=== PATIENT | female | born 1965 | race Hispanic/Latino ===

== ENCOUNTER 2017-05-07 06:56 | Inpatient (IN) | payer BC ==
[2017-04-18 10:54] VITALS: BMI 39.8
[2017-05-07] MEDS ORDERED: Propofol 10 mg/ml Inj (20 ML) ONE (08:27)
[2017-05-07] MEDS ORDERED: ePHEDrine 50 mg/ml Inj ONE (08:27)
[2017-05-07] MEDS ORDERED: Midazolam 2 MG/2 ML VIAL ONE (08:28)
[2017-05-07] MEDS ORDERED: Rocuronium 10 mg/ml (5 ml) ONE (08:28)
[2017-05-07] MEDS ORDERED: Succinylcholine 200 mg/10 ml Inj IV ONE (08:28)
[2017-05-07] MEDS ORDERED: Lidocaine 4% (Laryng-O-Jet) Kit MM ONE (08:28)
[2017-05-07] MEDS ORDERED: Bupivacaine 0.5% Inj(30mL) ONE (08:34)
[2017-05-07] MEDS ORDERED: Lactated Ringer's 500 ML IV ONE (09:00)
[2017-05-07] MEDS ORDERED: Sodium Chloride 0.9% 1,000 ML IV ONE ×2 (09:10→10:05)
[2017-05-07] MEDS ORDERED: Dexamethasone 4 mg/1 ml ONE (09:22)
[2017-05-07] MEDS ORDERED: APROTININ/FIBRINOGEN(TISSEEL) ONE ×2 (10:55→11:10)
[2017-05-07] MEDS ORDERED: Neostigmine 1:1000 (1 mg/ml) Inj ONE (11:11)
[2017-05-07] MEDS ORDERED: Desflurane Inhalation Anesthetic Liq (240 ml) ONE (11:18)
--- NOTE | 2017-05-07 11:45 | PCM.SURG1 ---
Surgeon's Initial Post Op Note - Surgeon's Notes Surgeon: Emily Jenkins MD Executive Producer Promos: alon EDOUARD, Maurisio EDOUARD Type of Anesthesia: General Endo, Local Pre-Operative Diagnosis: Chronic pelvic pain. Abnormal uterine bleeding. Fibroid uterus. Prolapse uterus Operative Findings: bulky uterus, extensive adhesions, adherent distroted pelvic anatomy both ovaries adherent to pelvic side wall, enlarged fibroid uterus, prolpase epical uterus, bowel adhesions to posterior culdesac, bladder and ureters normal appearing bilateraly. Post-Operative Diagnosis: Chronic pelvic pain. Abnormal uterine bleeding. Fibroid uterus. Prolapse uterus. Significant pelvic adhesive disease Operation Performed: Total robotic hysterectomy BSO >250g. Uterosacroligament suspenssion colpopexy. Enterolysis JERRY. Diagnostic cystoscopy Specimen/Specimens Removed: uterus cervix tubes and ovaries Estimated Blood Loss: EBL {In ML}: 20 Blood Products Given: N/A Drains Used: No Drains Date of Surgery/Procedure: 05/07/17 Time of Surgery/Procedure: 11:44
[2017-05-07] MEDS ORDERED: Oxycodone/Acetaminophen 5/325 mg Tab PO PRN (11:50)
--- NOTE | 2017-05-07 11:50 | PCM.OP ---
Operative Report - Operative Report Date of Surgery/Procedure: 05/07/17 Time of Surgery/Procedure: 11:48 Surgeon: Emily Jenkins MD Recruiting Consultant: Nathen Ann Anesthesia/Sedation: Gen with ET tube Pre-Operative Diagnosis: Chronic pelvic pain. Prolapse uterus. Fibroid uterus. ABnormal uterine bleeding. Urinary incontinence Post-Operative Diagnosis: Chronic pelvic pain. Prolapse uterus. Fibroid uterus. Abnormal uterine bleeding. Urinary incontinence. PElvic adhesive disease Indication for Surgery: Worsening chronic pain due to prolapsed uterus, worsening stress urinary incontinence Operative Findings: Bulky uterus, extensive bowel and peritoneal adhesions, bowel adhesions to posterior culdesac, adherent distroted pelvic anatomy both ovaries adherent to pelvic side wall, enlarged fibroid uterus, epical uterine prolapse, bladder and ureters normal appearing bilateraly. Procedure/Operation Description: Total robotic hysterectomy bilateral salpingo- oophorectomy>250g. Uterosacral ligament suspension colpopexy. Lysis of adhesions. Diagnostic cystoscopy. . Detailed Operative Report. This is a 52 years old female with worsening chronic pelvic pain, abnormal uterine bleeding due to fibroid uterus, prolapsed uterus associated with urinary incontinence and pelvic pressure. The patient completed an extensive preoperative workup, which included an ultrasound, as well as a pap smear and an endometrial biopsy, chemistry and hematology studies. A decision was finally made to proceed with a total robotic assisted hysterectomy, bilateral salpingo-oophorectomy, and vaginal vault suspension. All options alternative managements were reviewed including non-surgical and uterine preserving options , but a decision was made by the patient to proceed with surgical management, specifically a hysterectomy. The patient understands the definitive nature of the procedure and understands that she will not be able to have future pregnancies and possible surgical menopause due to an optional removal of her tubes and ovaries. A detailed description of this robotic procedure was given to the patient, all risks and benefits of the surgical modality was reviewed, printed material was also given to the patient regarding robotic surgery. The patient fully understood all the risks and benefits and elected to proceed with this proposed procedure. After proper consent was obtained from the patient was taken to the operating room, proper patient identification was completed. She was placed in dorsal lithotomy position; general anesthesia was induced without difficulty. Her legs were placed in adjustable Juan Carlos stirrups. Careful attention was placed not to over-flex or over-rotate the lower extremities at the hip or the knee joints. She was prepped and draped appropriately for robotic assisted hysterectomy. Mays catheter was inserted under sterile conditions. A V-care uterine manipulator was inserted through the cervix and secured. Attention was turned to the patient's abdomen. Local anesthetic solutions of 0.25% Marcaine with epinephrine were utilized to infiltrate the skin prior to all abdominal skin incisions. A total of 15 mL of 0.25% Marcaine was utilized throughout the procedure. While tenting the abdominal wall, a Veres needle was inserted through the umbilicus and a pneumo- peritoneum was obtained. Approximately at around the umbilical fold, , a small incision was made with a scalpel and a laparoscopic trocar and sleeve were introduced. A robotic camera was inserted through this trocar and an initial survey of the patient's pelvic and abdomen revealed bulky and boggy enlarged uterus associated with fibroids and possibly adenomyosis. Tubes and ovaries appeared adherent to the pelvic viscera and bowel. The patient was placed in Trendelenburg position ready for a da Pedro robotic system to be docked. 3 robotic ports were utilized for this procedure. The first robotic port was placed on the patient's right side approximately 5 cm above the right superior iliac crest where a small skin incision approximately 8 mm was made. The second robotic port was in the patient's left side approximately 5 cm superior to the left superior iliac crest. A small incision approximately 1 cm was made in the left upper quadrant and an enrichment assistant laparoscopic port was inserted. All robotic ports were approximately 8 mm in size, the enrichment assistant and the camera ports were 1 cm in size. For the enrichment assistant and camera ports we utilized the Versa-step trocar system. All trocars were inserted under direct visualization. The placement of the trocars was accomplished under careful and meticulous placement under direct visualization. Following the placement of all trocars, the da Pedro robotic system was docked in a parallel method without difficulty. The following instruments were utilized for this procedure : the PK sealing device, a monopolar misha and finally a ProGrasp. Meticulous and careful lysis of adhesions and enterolysis was completed utilizing the monopolar misha and PK. Prior to the start of the hysterectomy, both ureters and their courses were visualized peristalsing without difficulty. Prior to the start of the hysterectomy, Extensive lysis of adhesions and enterolysis was necessary to complete the procedure. The fallopian tubes were along the mesosalpinx and removed along with the uterus and cervix for pathology analysis. On the patient's right side, the round ligament was identified cauterized and transected. The IP ligament was cauterized and transected. The broad ligament was divided all the way down to the utero cervical junction bladder flap was then created by transecting the visceroperitoneum over the bladder reflection. In a similar fashion, the left round ligament, IP ligament and broad ligament were cauterized sealed and transected, taken down to the level of the cervical uterine junction. Uterine vessels on both sides were sealed and transected. The Uterosacral ligaments were sealed and transected. The monopolar misha and PK were utilized to complete the colpotomy incision around the care vaginal ring. Excellent hemostasis was noted. The uterus, cervix and fallopian tubes and ovaries were delivered transvaginal through the colpotomy incision and sent to pathology for permanent analysis. The colpotomy incision was closed with 2-0 v LOC in a continuous fashion with excellent hemostasis. The vaginal vault suspension was achieved by suspending the vaginal cuff to the base of the uterosacral ligaments bilaterally. Prior to the uterosacral ligament suspension, the ureters were once again identified to avoid possible compromise or kinking while suspending the vaginal vault. Meticulous dissection carried out to dissect out the ureters bilaterally to avoid kinking of the ureters with the suspension procedure. A 2-0 Juliette-Brown suture material was utilized to suspend the uterosacral ligaments from the base to the vaginal vault cuff incision including both anterior and posterior aspect of the colpotomy incision. Utilizing a 3-0 Monocryl suture, the peritoneum over the colpotomy incision and uterosacral ligaments was re-approximated in a continuous fashion. The abdomen was throughout irrigated and cleared of all clots and debris. Benjamin-Seal as well as Interceed was applied to the incision sites. Excellent hemostasis was again noted. All robotic and laparoscopic instruments removed under direct visualization. The robotic arms were undocked , and a da Baobab robotic system was wheeled away from the patient's bedside. Both enrichment assistant and camera ports were closed at the fascial layer utilizing 0 Vicryl suture material in interrupted fashion. Pneumo-peritoneum was reduced and all skin incisions were closed utilizing 4-0 Monocryl in a subcutaneous fashion. Dermabond was applied to all incisions. Due to the complexity of this hysterectomy, the extensive of the peritoneal and bowel adhesions and finally the distorted pelvic anatomy, a diagnostic cystoscopy was completed. The Mays catheter was removed; the bladder was distended with approximately 350 cc of normal saline. A 30 cystoscope was introduced and a survey of the bladder anatomy was completed. The base, and the dome of the bladder appeared normal, both ureteral orifices appeared normal and were effluxing urine freely. The urethra appeared normal. A Mays catheter was reinserted. Patient emerged from general anesthesia without difficulty, and was taken to recovery room in stable condition. Prior to incision the patient received antibiotics, prior to closure sponge lap and needle counts were correct x2. Difficult case due to severely distorted anatomy and dense adhesions, enrichment assistant surgeon SILKE Sena, was essential to docking the robot, irrigation and retraction during the procedure. This was an exceptionally difficult surgery and it required prolong duration and high degree of difficulty. Estimated Blood Loss: 20 Blood Replaced: None Sponge/Instrument Count: Count correct 2 Drains: None Complications: No complications noted Specimen: Uterus and cervix tubes and ovaries Discharge & Condition: Patient was discharged home in stable condition
[2017-05-07] MEDS ORDERED: Lactated Ringer's 1,000 ML IV SCH ×2 (12:00)
[2017-05-07] MEDS: HYDROmorphone 0.5 mg/0.5 ml ISec IVP PRN ×3 (12:10→12:40)
--- NOTE | 2017-05-07 12:58 | CARD ---
APPROVED REPORT EKG Measurement Heart [id number] <Conclusion> Normal sinus rhythm with sinus arrhythmia Normal ECG
[2017-05-08 06:38] LABS: MEAN CELL VOLUME 87.8 fl (81.0-99.0); MEAN CORPUSCULAR HEMOGLOBIN 29.5 pg (27.0-31.0); MEAN CORPUSCULAR HGB CONC 33.6 g/dL (33.0-37.0); RBC 3.75 Mil/uL (3.80-5.20); RED CELL DISTRIBUTION WIDTH 13.6 % (11.5-14.5); WHITE BLOOD COUNT 9.9 K/uL (4.8-10.8)
[2017-05-08 07:04] LABS: BLOOD UREA NITROGEN 9 mg/dl (7-17); CALCIUM 8.9 mg/dL (8.4-10.2); GFR AFRICAN-AMERICAN > 60; GFR NON-AFRICAN AMERICAN > 60
[2017-05-08 08:43] VITALS: BP 130/64; RESP 18
--- NOTE | 2017-05-08 09:09 | CP.PCM.PN ---
Subjective - Date & Time of Evaluation Date of Evaluation: 05/08/17 Time of Evaluation: 08:30 - Subjective Subjective: Patient seen and examined at bedside comfortable. Pain well controlled. Tolerating diet well. No acute events overnight. Objective - Vital Signs/Intake and Output Vital Signs (last 24 hours): Temp Pulse Resp BP Pulse Ox 98.3 F 60 18 130/64 98 05/08/17 08:30 05/08/17 08:30 05/08/17 08:30 05/08/17 08:30 05/08/17 08:30 Intake and Output: 05/08/17 05/08/17 06:59 18:59 Intake Total 1700 Output Total 1950 Balance -250 - Medications Medications: Current Medications Hydromorphone HCl (Dilaudid) 2 mg IVP Q3H PRN PRN Reason: Pain, severe (8-10) Lactated Ringer's (Lactated Ringer's) 1,000 mls @ 125 mls/hr IV .Q8H [facility] Last Admin: 05/07/17 23:28 Dose: 125 mls/hr Lactated Ringer's (Lactated Ringer's) 1,000 mls @ 100 mls/hr IV .Q10H [facility] Ketorolac Tromethamine (Toradol) 30 mg IVP Q6H [facility] Last Admin: 05/08/17 05:36 Dose: 30 mg Ondansetron HCl (Zofran Inj) 4 mg IVP Q6 PRN PRN Reason: Nausea/Vomiting Oxycodone/Acetaminophen (Percocet 5/325 Mg Tab) 2 tab PO Q4H PRN PRN Reason: Pain, moderate (4-7) Stop: 05/10/17 11:51 - Labs Labs: 05/08/17 05:50 05/08/17 05:50 - GI/Abdominal Exam GI & Abdominal Exam: Soft, Tenderness (mild 2nd to surgery), Normal Bowel Sounds. absent: Distended, Guarding, Rebound Assessment and Plan (1) Fibroid uterus Assessment & Plan: Patient is POD#1 from Davinci hysterectomy, uterosacral lig suspension, and lysis of adhesions doing well -pain control -void check -OOB -ok to d/c to home once voided -f/u in office within 2 weeks -case and plan d/w Dr. Jenkins in agreement Status: Acute
[2017-05-08 12:26] VITALS: PULSE 63; TEMP 98.4; O2SAT 97
== END 2017-05-08 13:00 | disposition home or self-care (01) | DRG 743 ==
LOC: H.OPSURG 06:56 → H.PEDS 11:50
PROVIDERS: ADMIT Obstetrics & Gynecology; ATTEND Obstetrics & Gynecology
PROC: 0UT20ZZ Resection of Bilateral Ovaries, Open Approach (ICD-10-PCS; 2017-05-07)
PROC: 0US90ZZ Reposition Uterus, Open Approach (ICD-10-PCS; 2017-05-07)
PROC: 0DNW0ZZ Release Peritoneum, Open Approach (ICD-10-PCS; 2017-05-07)
PROC: 8E0W0CZ Robotic Assisted Procedure of Trunk Region, Open Approach (ICD-10-PCS; 2017-05-07)
PROC: 0TJB8ZZ Inspection of Bladder, Via Natural or Artificial Opening Endoscopic (ICD-10-PCS; 2017-05-07)
PROC: 0UT90ZZ Resection of Uterus, Open Approach (ICD-10-PCS; principal; 2017-05-07 09:00)
PROC: 0UT70ZZ Resection of Bilateral Fallopian Tubes, Open Approach (ICD-10-PCS; 2017-05-07 09:00)
DX: D25.9 Leiomyoma of uterus, unspecified (principal); N73.6 Female pelvic peritoneal adhesions (postinfective); N81.4 Uterovaginal prolapse, unspecified; N93.9 Abnormal uterine and vaginal bleeding, unspecified; R32 Unspecified urinary incontinence; Z88.1 Allergy status to other antibiotic agents; Z88.3 Allergy status to other anti-infective agents